=== PATIENT | female | born 1975 | race African-American/Black ===

== ENCOUNTER 2016-07-22 18:03 | Emergency (ER) | payer BC ==
[2016-07-22 18:28] VITALS: BP 121/66
--- NOTE | 2016-07-22 18:54 | UC ---
Ear Complaint HPI - HPI Summary HPI Summary: L ear itchiness, fullness, lowered hearing for about a week. Tried OTC ear drops without relief, and used a swab to help with itchiness. - History of Current Complaint Chief Complaint: UCRespiratory Stated Complaint: EAR ACHE Time Seen by Provider: 07/22/16 18:41 Hx Obtained From: Patient Hx Last Menstrual Period: 04/02 ?: No Onset/Duration: Gradual Onset, Lasting Days Severity Initially: Mild Severity Currently: Mild Aggravating Factors: FB Alleviating Factors: Nothing Associated Signs/Symptoms: Positive: Hearing Loss. Negative: Swelling @, URI Symptoms - Allergies/Home Medications Allergies/Adverse Reactions: Allergies Allergy/AdvReac Type Severity Reaction Status Date / Time No Known Allergies Allergy Verified 04/20/16 17:09 PMH/Surg Hx/FS Hx/Imm Hx Endocrine History Of: Denies: Diabetes, Thyroid Disease, Hyperthyroidism, Hypothyroidism, Dyslipidemia Cardiovascular History Of: Denies: Cardiac Disorders, Hypertension, Pacemaker/ICD, Myocardial Infarction , Congestive Heart Failure, Atrial Fibrillation, Deep Vein Thrombosis, Bleeding Disorders Respiratory History Of: Reports: Asthma - As a child Denies: COPD, Bronchitis, Pneumonia, Pulmonary Embolism GI/ History Of: Denies: Gastroesophageal Reflux, Ulcer, Gastrointestinal Bleed, Gall Bladder Disease, Kidney Stones, Diverticulitis, Renal Disease, Urosepsis Neurological History Of: Denies: TIA, CVA, Dementia, Seizures, Migraine Psychological History Of: Denies: Anxiety, Depression, Bipolar Disorder, Schizophrenia, Post Traumatic Stress Disorder Cancer History Of: Denies: Lung Cancer, Colorectal Cancer, Breast Cancer, Prostate Cancer, Cervical Cancer Other History Of: Negative For: HIV, Hepatitis B, Hepatitis C, Anticoagulant Therapy - Surgical History Surgical History: Yes Surgery Procedure, Year, and Place: C section - Family History Known Family History: Negative: Hypertension, Diabetes - Social History Lives: With Family Alcohol Use: None Substance Use Type: None Smoking Status (MU): Never Smoked Tobacco Review of Systems Constitutional: Negative Skin: Negative Eyes: Negative ENT: Ear Ache Respiratory: Negative Cardiovascular: Negative Gastrointestinal: Negative Genitourinary: Negative Motor: Negative Neurovascular: Negative Musculoskeletal: Negative Neurological: Negative Psychological: Negative All Other Systems Reviewed And Are Negative: Yes Physical Exam Triage Information Reviewed: Yes Appearance: Well-Appearing, No Pain Distress, Well-Nourished Vital Signs: Initial Vital Signs Temp 98.7 F 07/22/16 18:22 Pulse 61 07/22/16 18:22 Resp 18 07/22/16 18:22 BP 121/66 07/22/16 18:22 Pulse Ox 100 07/22/16 18:22 Vital Signs Reviewed: Yes Eye Exam: Normal Eyes: Positive: Conjunctiva Clear ENT: Positive: Hearing grossly normal, Pharynx normal, Other: - L cerumen impaction. Negative: Nasal congestion, Nasal drainage Dental Exam: Normal Neck exam: Normal Neck: Positive: Supple, Nontender, No Lymphadenopathy Respiratory Exam: Normal Respiratory: Positive: Chest non-tender, Lungs clear, Normal breath sounds, No respiratory distress, No accessory muscle use Cardiovascular Exam: Normal Cardiovascular: Positive: RRR, No Murmur Musculoskeletal Exam: Normal Neurological Exam: Normal Psychological Exam: Normal Skin Exam: Normal Ear Complaint Course/Dx - Differential Dx/Diagnosis Provider Diagnoses: L cerumen impaction Discharge - Discharge Plan Condition: Stable Disposition: HOME Patient Education Materials: Cerumen Impaction (ED) Referrals: No Primary Care Phys,NOPCP [Primary Care Provider] - Additional Instructions: If you have new or worsening symptoms, please return here for a recheck.
== END 2016-07-22 19:10 | disposition home or self-care (01) ==
LOC: UCEAST 18:03
DX: H61.22 Impacted cerumen, left ear (principal)
CPT/HCPCS: 99212; G0463

== ENCOUNTER 2018-08-30 20:33 | Emergency (ER) | payer BC ==
[2018-08-30 20:51] VITALS: BP 112/69
[2018-08-30] MEDS ORDERED: Ibuprofen TAB* 600 MG PO ONE (21:03)
--- NOTE | 2018-08-30 21:19 | UC ---
Knee Pain HPI - HPI Summary HPI Summary: 43-year-old woman comes to clinic with a chief complaint of bilateral knee pain. Pain started several months ago and has gradually been worsening. It feels more anterior behind the knee caps. Left is worse than right. It's worse with climbing and descending stairs. Feels well. No fevers or chills. No known trauma. She works out regularly in the gym. Last couple days the pain has been too severe for her to complete her workup. Has not tried any ibuprofen. - History of Current Complaint Chief Complaint: UCLowerExtremity Stated Complaint: PAIN IN KNEES Time Seen by Provider: 08/30/18 20:50 Hx Last Menstrual Period: 08/10/18 Pain Intensity: 7 - Allergies/Home Medications Allergies/Adverse Reactions: Allergies Allergy/AdvReac Type Severity Reaction Status Date / Time No Known Allergies Allergy Verified 08/30/18 20:51 PMH/Surg Hx/FS Hx/Imm Hx Previously Healthy: Yes Other History Of: Negative For: HIV, Hepatitis B, Hepatitis C, Anticoagulant Therapy - Surgical History Surgical History: Yes Surgery Procedure, Year, and Place: C section - Family History Known Family History: Negative: Hypertension, Diabetes - Social History Alcohol Use: None Substance Use Type: None Smoking Status (MU): Never Smoked Tobacco Review of Systems All Other Systems Reviewed And Are Negative: Yes Constitutional: Positive: Negative Skin: Positive: Negative Eyes: Positive: Negative ENT: Positive: Negative Respiratory: Positive: Negative Cardiovascular: Positive: Negative Gastrointestinal: Positive: Negative Motor: Positive: Negative Neurovascular: Positive: Negative Musculoskeletal: Positive: Other: - SEE HPI Neurological: Positive: Negative Psychological: Positive: Negative Is Patient Immunocompromised?: No Physical Exam Triage Information Reviewed: Yes Appearance: Well-Appearing, No Pain Distress, Well-Nourished Vital Signs: Initial Vital Signs Temp 98.1 F 08/30/18 20:44 Pulse 77 08/30/18 20:44 Resp 16 08/30/18 20:44 BP 112/69 08/30/18 20:44 Pulse Ox 100 08/30/18 20:44 Vital Signs Reviewed: Yes Eye Exam: Normal Eyes: Positive: Conjunctiva Clear Neck exam: Normal Neck: Positive: Supple Respiratory: Positive: No respiratory distress Musculoskeletal: Positive: Other: - No effusions of the knees. The left knee in the anterior portion is mildly warm to palpation. There is no erythema of either knee. There is some creaking felt underneath the patella of both knees with flexion and extension. Negative negative Cade's bilaterally. Both knees without laxity. Neurological Exam: Normal Neurological: Positive: Alert, Muscle Tone Normal Psychological Exam: Normal Psychological: Positive: Age Appropriate Behavior Skin Exam: Normal Knee Pain Course/Dx - Course Course Of Treatment: I discussed the x-rays with the patient. I do not see any fracture radiologist reading is pending based on her symptoms most likely diagnosis is patellofemoral syndrome. Patient does work out on a regular basis. We'll start with ibuprofen and ice and support. Follow-up with orthopedics to ensure full recovery. - Differential Dx/Diagnosis Provider Diagnosis: Knee pain, bilateral Discharge - Sign-Out/Discharge Documenting (check all that apply): Patient Departure All imaging exams completed and their final reports reviewed: No - Discharge Plan Condition: Stable Disposition: HOME Patient Education Materials: Patellofemoral Pain Syndrome (ED), Knee Pain (ED) Referrals: Herb Villaseñor MD [Medical Doctor] - Additional Instructions: FOLLOW UP WITH ORTHOPEDICS, DR VILLASEÑOR. TAKE IBUPROFEN 600MG EVERY 6 HOURS NEEDED. GET RECHECKED FOR ANY WORSENING OF YOUR CONDITION OR QUESTIONS OR CONCERNS. - Billing Disposition and Condition Condition: STABLE Disposition: Home
--- NOTE | 2018-08-31 12:19 | UC ---
- Progress Note Progress Note: RADIOLOGY REPORT REVIEWED. NO ACUTE OSSEOUS INJURY TO THE LEFT KNEE OR TO THE RIGHT KNEE. NO CHANGE IN MGMT. Course/Dx - Diagnoses Provider Diagnoses: Knee pain, bilateral Discharge - Sign-Out/Discharge Documenting (check all that apply): Post-Discharge Follow Up All imaging exams completed and their final reports reviewed: Yes - Discharge Plan Condition: Stable Disposition: HOME Patient Education Materials: Patellofemoral Pain Syndrome (ED), Knee Pain (ED) Referrals: Herb Villaseñor MD [Medical Doctor] - Additional Instructions: FOLLOW UP WITH ORTHOPEDICS, DR VILLASEÑOR. TAKE IBUPROFEN 600MG EVERY 6 HOURS NEEDED. GET RECHECKED FOR ANY WORSENING OF YOUR CONDITION OR QUESTIONS OR CONCERNS. - Billing Disposition and Condition Condition: STABLE Disposition: Home
== END 2018-08-30 22:05 | disposition home or self-care (01) ==
LOC: UCEAST 20:33
DX: M25.561 Pain in right knee (principal); M25.562 Pain in left knee
CPT/HCPCS: 99212; A9270-GY; G0463

== ENCOUNTER 2018-12-02 14:13 | Emergency (ER) | payer BC ==
[2018-12-02 14:28] VITALS: BP 100/66
--- NOTE | 2018-12-02 14:41 | UC ---
Lower Extremity/Ankle HPI - HPI Summary HPI Summary: Left knee pain x 6 mo. Has been told to start PT by Ortho x2 but pt feels that is not the right step and that it was not explained what dx she had and why she needed PT. She is frustrated w/ her knee pain as she is physically active. - History of Current Complaint Chief Complaint: UCLowerExtremity Stated Complaint: L KNEE INJURY Time Seen by Provider: 12/02/18 14:31 Hx Obtained From: Patient Hx Last Menstrual Period: 08/10/18 Pain Intensity: 7 Pain Scale Used: 0-10 Numeric Aggravating Factor(s): Other - up stairs or twisting motions like getting out of car Alleviating Factor(s): Rest, Other - chiropractor Able to Bear Weight: Yes - Allergies/Home Medications Allergies/Adverse Reactions: Allergies Allergy/AdvReac Type Severity Reaction Status Date / Time No Known Allergies Allergy Verified 12/02/18 14:28 PMH/Surg Hx/FS Hx/Imm Hx - Additional Past Medical History Additional PMH: no chronic issues Previously Healthy: Yes Other History Of: Negative For: HIV, Hepatitis B, Hepatitis C, Anticoagulant Therapy - Surgical History Surgical History: Yes Surgery Procedure, Year, and Place: C section - Family History Known Family History: Negative: Hypertension, Diabetes - Social History Alcohol Use: None Substance Use Type: None Smoking Status (MU): Never Smoked Tobacco Review of Systems All Other Systems Reviewed And Are Negative: Yes Constitutional: Negative: Fever Skin: Negative: Rash, Bruising Musculoskeletal: Positive: Arthralgia - bilat knee pain L>R. Negative: Decreased ROM Neurological: Negative: Paresthesia, Numbness Physical Exam Triage Information Reviewed: Yes Appearance: Well-Appearing Vital Signs: Initial Vital Signs Temp 98.6 F 12/02/18 14:21 Pulse 81 12/02/18 14:21 Resp 18 12/02/18 14:21 BP 100/66 12/02/18 14:21 Pulse Ox 100 12/02/18 14:21 Vital Signs Reviewed: Yes Musculoskeletal: Positive: ROM Intact, No Edema, Other: - able to get on/off exam table without difficulty Skin: Negative: Other - no bruising or redness noted. Lower Extremity Course/Dx - Course Course Of Treatment: chronic left knee pain. has seen ortho twice and did want to return. has yet to complete PT that was ordered. denies reinjury. she came here today b/c she wanted a specific diagnosis. i reviewed xray w/ her from 08/2018 which did not show any bony abnormalities. we discussed the possibility of getting MRI outpatient from a primary care provider vs. going to PT and finishing the treatment. She will decide what to do from here. Currently no acute pain and no abnormalities on exam. suspect ACL/PCL disorder. - Differential Dx/Diagnosis Differential Diagnosis/HQI/PQRI: Contusion, Sprain, Strain Provider Diagnosis: Knee pain Discharge - Sign-Out/Discharge Documenting (check all that apply): Patient Departure All imaging exams completed and their final reports reviewed: No Studies - Discharge Plan Condition: Good Disposition: HOME Patient Education Materials: Knee Pain (ED) Referrals: [facility] [Outside] Additional Instructions: Please consider starting physical therapy to strengthen the left knee. continue using the brace. this will all be started by a primary care provider once you get one. - Billing Disposition and Condition Condition: GOOD Disposition: Home
== END 2018-12-02 15:20 | disposition home or self-care (01) ==
LOC: UCEAST 14:13
DX: M25.562 Pain in left knee (principal)
CPT/HCPCS: 99211; G0463

== ENCOUNTER 2019-09-05 15:02 | Emergency (ER) | payer BC ==
[2019-09-05 15:55] VITALS: BP 111/67
[2019-09-05] MEDS ORDERED: Ibuprofen TAB* 400 MG PO ONE (16:01)
--- NOTE | 2019-09-05 16:24 | UC ---
FLU HPI - HPI Summary HPI Summary: 44 y/o female presents to the urgent care c/o c/o headache, stomach pain, runny nose, body aches. Symptoms since 09/04/19. - History of Current Complaint Chief Complaint: UCRespiratory Stated Complaint: CONGESTED Time Seen by Provider: 09/05/19 16:21 Hx Obtained From: Patient Hx Last Menstrual Period: 1 week ago Pain Intensity: 3 - Allergy/Home Medications Allergies/Adverse Reactions: Allergies Allergy/AdvReac Type Severity Reaction Status Date / Time lactose Allergy lactose Verified 09/05/19 15:55 intolerant Home Medications: Home Medications D-Methorphan/PE/Acetaminophen [Vicks Dayquil Liquicaps] 2 each PO PRN 09/05/19 [ History] Dm/Acetaminophen/Doxylamine [Vicks Nyquil Liquicaps] 2 each PO PRN 09/05/19 [ History] Ibuprofen TAB* [Motrin TAB* 800 MG] 800 mg PO Q6H PRN #30 tab 09/05/19 [Rx] Oseltamivir CAP* [Tamiflu CAP*] 75 mg PO BID #10 cap 09/05/19 [Rx] PMH/Surg Hx/FS Hx/Imm Hx Other History Of: Negative For: HIV, Hepatitis B, Hepatitis C, Anticoagulant Therapy - Surgical History Surgical History: Yes Surgery Procedure, Year, and Place: C section - Family History Known Family History: Negative: Hypertension, Diabetes - Social History Alcohol Use: None Substance Use Type: None Smoking Status (MU): Never Smoked Tobacco Physical Exam - Summary Physical Exam Summary: VITAL SIGNS: Reviewed. GENERAL: Patient is a well developed and nourished female who is sitting comfortably in the examining table. Patient is not in any acute respiratory distress. HEAD AND FACE: No signs of trauma. No ecchymosis, hematomas or skull depressions. No sinus tenderness. EYES: PERRLA, EOMI x 2, No injected conjunctiva, no nystagmus. No photophobia. EARS: Hearing grossly intact. Ear canals and tympanic membranes are within normal limits. MOUTH: Positive pharynx with mild erythema, no exudates, No B/L tonsillar enlargement , no exudate. Uvula in midline. edematous nasal mucosa w/ clear nasal discharge, clear PND NECK: Supple, trachea is midline, Positive anterior cervical lymphadenopathy, no JVD, no carotid bruit, no c-spine tenderness, neck with full ROM. No meningeal signs, no Kernig's or brudzinskis signs. CHEST: Symmetric, no tenderness at palpation LUNGS: Clear to auscultation bilaterally. No wheezing or crackles. CVS: Regular rate and rhythm, S1 and S2 present, no murmurs or gallops appreciated. ABDOMEN: Soft, non-tender. No signs of distention. No rebound no guarding, and no masses palpated. Bowel sounds are normal. EXTREMITIES: FROM in all major joints, no edema, no cyanosis or clubbing. NEURO: Alert and oriented x 3. No acute neurological deficits. Pt follows commands. SKIN: Dry and warm Triage Information Reviewed: Yes Vital Signs: Initial Vital Signs Temp 103.7 F 09/05/19 15:49 Pulse 94 09/05/19 15:49 Resp 18 09/05/19 15:49 BP 111/67 09/05/19 15:49 Pulse Ox 99 09/05/19 15:49 Flu Course/Dx - Course Course Of Treatment: Pt hemodynamically stable, A&OX3, febrile with URI on examination. Rapid strep ordered, result: negative.Influenza A&B ordered: result: Influenza A positive. Pt given Ibuprofen PO by lyndsey for fever. Pt tolerated well medication and felt better. Pt Rx Tamiflu and ibuprofen PO to alleviate symptoms. Advised on hand washing and wearing a mask to avoid spreading. Pt advised to rest, increase fluid intake, eat well and avoid strenuous exercise. If symptoms do not improve or worsen advised to return to the urgent care or f/u with her PCP for further evaluation and treatment. Pt understood and agreed - Differential Dx/Diagnosis Differential Diagnosis/HQI/PQRI: Bronchitis, Influenza, Pneumonia, Upper Respiratory Infection Provider Diagnosis: Influenza A, Fever Discharge ED - Sign-Out/Discharge Documenting (check all that apply): Patient Departure - D/C home All imaging exams completed and their final reports reviewed: No Studies - Discharge Plan Condition: Stable Disposition: HOME Prescriptions: Ibuprofen TAB* [Motrin TAB* 800 MG] 800 mg PO Q6H PRN #30 tab PRN Reason: fever Oseltamivir CAP* [Tamiflu CAP*] 75 mg PO BID #10 cap Patient Education Materials: Influenza (ED) Forms: *Work Release Referrals: [facility] [place] [facility] [Outside] - 3 Days Additional Instructions: 1- Please take the full course of the antiviral to avoid resistance. Encourage hand washing and wear a mask to avoid spreading. 2-Take Ibuprofen PO q6-8hrs prn and alternate w/ Tylenol PO q6-8hrs prn as instructed after meals to alleviate fever, and SANCHEZ. Increase fluid intake, eat well, rest and avoid strenuous exercise 3-If symptoms do not improve or worsen please return to the urgent care or f/u with your PCP in 3 days for further evaluation and treatment. - Billing Disposition and Condition Condition: STABLE Disposition: Home
[2019-09-05 16:41] LABS: Influenza A Molecular POSITIVE (Negative)
== END 2019-09-05 17:15 | disposition home or self-care (01) ==
LOC: UCEAST 15:02
DX: J11.1 Influenza due to unidentified influenza virus with other respiratory manifestations (principal); R50.9 Fever, unspecified; Z91.011 Allergy to milk products
CPT/HCPCS: 99212; A9270-GY; G0463